=== PATIENT | male | born 1960 | race Caucasian/White ===

== ENCOUNTER → 2017-11-21 10:22 | Outpatient (CLI) | payer BC, SELFPAY ==
--- NOTE | 2017-11-21 10:29 | RAD_ITS ---
STUDY: X-RAY - ABDOMEN/PELVIS REASON FOR EXAM: Male, 57 years old. Abdominal pain. Evaluate for inflammatory bowel syndrome. TECHNIQUE: AP supine and upright views of the abdomen and pelvis. COMPARISON: None. FINDINGS: Normal visualized lung bases. There is an unremarkable bowel gas pattern with air seen to the level of the rectosigmoid. There is no demonstrated free abdominal air. The visualized liver, spleen and kidneys are grossly normal in size and morphology. There are phleboliths in the pelvis. Normal visualized osseous structures. RAD/Abd Inc Decub and/or Erect IMPRESSION: No acute pathology of the abdomen or pelvis. Electronically Signed: Diego Chi MD at 10:53 EDT , Service support ,
== END ==
PROVIDERS: Family Provider Internal Medicine; PCP Internal Medicine; Visit Provider Nurse Practitioner Gerontology
DX: R14.0 Abdominal distension (gaseous) (principal)
CPT/HCPCS: 74019

== ENCOUNTER → 2018-02-14 07:08 | Outpatient (CLI) | payer BC, SELFPAY ==
[2018-02-14 10:46] LABS: AST(SGOT) 69 U/L (15-37); Alanine Aminotransfer ALT/SGPT 72 U/L (16-61); Albumin, Serum 3.7 g/dL (3.2-5.0); Alkaline Phosphatase 61 U/L (45-117); Anion Gap 9 (5-15); BUN 13 mg/dL (7-18); BUN/Creat Ratio 13.5 RATIO (10-20); Calcium,Total 8.6 mg/dL (8.5-10.1); Chloride 109 mmol/L (98-107); Cholesterol 163 mg/dL (200); Creatinine, Serum 0.96 mg/dL (0.70-1.30); EST Glomerular Filtration Rate 86 mL/min (>60); Est Glom Filt Rate - Afr Amer 103 mL/min (>60); Globulin 3.7 g/dL (2.2-4.2); Glucose 141 mg/dL (74-106); High Density Lipoprotein 15 mg/dL; Potassium 3.9 mmol/L (3.5-5.1); Protein, Total 7.4 g/dL (6.4-8.2); Sodium Level 142 mmol/L (136-145); Triglycerides 323 mg/dL; Very Low Density Lipoprotein 65 mg/dL (5-40)
== END ==
PROVIDERS: Family Provider Internal Medicine; PCP Internal Medicine; Visit Provider Nurse Practitioner
DX: E78.5 Hyperlipidemia, unspecified (principal)
CPT/HCPCS: 36415; 80053; 80061

== ENCOUNTER → 2019-06-07 15:29 | Outpatient (CLI) | payer OTHER, SELFPAY ==
[2019-06-07 15:53] LABS: Absolute Lymphocyte Count 0.85 X10^3/uL (0.83-4.51); Absolute Neutrophil Count 9.2 X10^3/uL (2.0-7.7); Basophil# 0.04 X10^3/uL; Basophil% 0.4 % (0-1); Eosinophil# 0.21 X10^3/uL; Hematocrit 50.3 % (40-54); Hemoglobin 16.6 g/dL (13.0-16.5); Lymphocyte # 0.85 X10^3/ul (4.0); Mean Corpuscular Hgb 28.2 pg (27.0-32.0); Mean Corpuscular Volume 85.4 fL (80-94); Mean Platelet Vol. 9.9 fl (6.2-12.0); Monocyte# 0.29 X10^3/uL; Monocyte% 2.7 % (0-10); NRBC Flagged by Analyzer 0 % (0-5); Neutrophil % 86.5 % (47-70); Platelet Count 264 K/mm3 (150-450); RBC Distribution Width CV 13.1 % (11.6-14.6); RBC Distribution Width SD 40.6 fl (35.1-43.9); Red Blood Count 5.89 M/mm3 (4.6-6.2); White Blood Count 10.6 K/mm3 (4.4-11.0)
[2019-06-07 17:37] LABS: ALB/GLOB Ratio 1.1 RATIO (0.9-2.4); AST(SGOT) 112 U/L (15-37); Alanine Aminotransfer ALT/SGPT 96 U/L (16-61); Albumin, Serum 4.2 g/dL (3.2-5.0); Alkaline Phosphatase 86 U/L (45-117); Anion Gap 8 (5-15); BUN 14 mg/dL (7-18); BUN/Creat Ratio 13.7 RATIO (10-20); Calcium,Total 9.4 mg/dL (8.5-10.1); Chloride 106 mmol/L (98-107); Creatinine, Serum 1.02 mg/dL (0.70-1.30); EST Glomerular Filtration Rate 80 mL/min (>60); Est Glom Filt Rate - Afr Amer 96 mL/min (>60); Globulin 3.8 g/dL (2.2-4.2); Glucose 131 mg/dL (74-106); Sodium Level 140 mmol/L (136-145)
== END ==
PROVIDERS: Family Provider Internal Medicine; PCP Internal Medicine; Referring Provider Nurse Practitioner; Visit Provider Nurse Practitioner
DX: R11.10 Vomiting, unspecified (principal)
CPT/HCPCS: 80053; 85025

== ENCOUNTER → 2019-06-08 10:47 | Outpatient (CLI) | payer OTHER, SELFPAY ==
--- NOTE | 2019-06-08 10:53 | US_ITS ---
STUDY: ABDOMINAL ULTRASOUND - RIGHT UPPER QUADRANT REASON FOR VISIT: Male, 58 years old. Abdominal pain TECHNIQUE: Ultrasound evaluation of the right upper quadrant was performed with real-time and static mahmood-scale imaging. TECHNICAL QUALITY: Adequate. COMPARISON: None. FINDINGS: Liver: The liver measures 20 cm. There is normal echogenicity of the liver. The bile ducts are within normal limits. There is hepatic color flow. The direction of portal flow is hepatopetal. There is no demonstrated mass lesion. Gallbladder: Normal distended gallbladder. The gallbladder wall measures 2 mm. There is a negative sonographic Agarwal''s sign. There is no pericholecystic fluid. The gallbladder contains a gallstone. Gallbladder abdomen pneumatosis is present. Common Bile Duct (C.B.D.): The common bile duct measures 3 mm. Pancreas: Normal size of the head, body and tail of the pancreas. There is normal echogenicity of the pancreas. There is no demonstrated pancreatic mass or cyst. Right Kidney: Normal size of the right kidney. The right kidney measures 13 cm. Normal renal cortex. There is no demonstrated renal mass or cyst. There is no right hydronephrosis. US/Abdomen Limited IMPRESSION: Fatty liver. Hepatomegaly. No hepatic lesions identified. Cholelithiasis. Gallbladder adenomyomatosis. Electronically Signed: Dion Nettles, at 12:30 EST Tel , Service support ,
== END ==
PROVIDERS: Family Provider Nurse Practitioner; PCP Nurse Practitioner; Referring Provider Nurse Practitioner; Visit Provider Nurse Practitioner
DX: R10.11 Right upper quadrant pain (principal)
CPT/HCPCS: 76705

== ENCOUNTER → 2019-12-06 | Outpatient (CLI) | payer OTHER, SELFPAY ==
[2019-06-14 10:23] VITALS: BMI 28.8
== END | disposition home or self-care (01) ==
LOC: LABSPEC 10:09
PROVIDERS: PCP Nurse Practitioner; Referring Provider Otolaryngology; Visit Provider Otolaryngology
DX: Z11.59 Encounter for screening for other viral diseases (principal)
CPT/HCPCS: 87635; G2023; U0003

== ENCOUNTER → 2019-12-16 12:11 | Outpatient (CLI) | payer OTHER, SELFPAY ==
[2019-06-14 10:23] VITALS: BMI 28.8
== END ==
PROVIDERS: PCP Nurse Practitioner; Visit Provider Otolaryngology
DX: Z11.59 Encounter for screening for other viral diseases (principal)
CPT/HCPCS: 87635; G2023; U0003

== ENCOUNTER → 2019-12-16 14:10 | Outpatient (CLI) | payer OTHER, SELFPAY ==
[2019-06-14 10:23] VITALS: BMI 28.8
--- NOTE | 2019-12-16 14:27 | EKG12_ITS ---
Test Reason : PRE OP Blood Pressure : / mmHG Vent. Rate : 069 BPM Atrial Rate : 069 BPM P-R Int : 146 ms QRS Dur : 092 ms QT Int : 410 ms P-R-T Axes : -12 047 028 degrees QTc Int : 439 ms Normal sinus rhythm Normal ECG Confirmed by ALYSON CEE, ELSI ([id number]), writer editor BHARATH ARTEAGA ([id number]) on 12/17/2019 9:15:41 AM Referred By: Jose Jolly Confirmed By:ELSI SHIELDS MD
[2019-12-16 16:20] LABS: Anion Gap 5 (5-15); BUN 9 mg/dL (7-18); BUN/Creat Ratio 11.3 RATIO (10-20); Calcium,Total 8.9 mg/dL (8.5-10.1); Chloride 105 mmol/L (98-107); EST Glomerular Filtration Rate 106 mL/min (>60); Est Glom Filt Rate - Afr Amer 128 mL/min (>60); Glucose 137 mg/dL (74-106); Potassium 3.6 mmol/L (3.5-5.1); Sodium Level 138 mmol/L (136-145)
== END ==
PROVIDERS: PCP Nurse Practitioner; Referring Provider Otolaryngology; Visit Provider Otolaryngology
DX: Z01.818 Encounter for other preprocedural examination (principal); M95.0 Acquired deformity of nose
CPT/HCPCS: 36415; 80048; 93005

== ENCOUNTER 2020-03-30 06:42 | Emergency (ER) | payer OTHER, SELFPAY ==
[2020-02-28 10:57] VITALS: BMI 28.1
[2020-03-30 06:43] VITALS: BP 159/85; PULSE 85; RESP 16; TEMP 36.7; O2SAT 97; BMI 28.5
--- NOTE | 2020-03-30 07:09 | ED.DCSUM_ITS ---
- ER Visit Summary Date of Service: 03/30/20 Chief Complaint: Red eye History of Present Illness: The patient is a 59 M who presents with a red right eye. He woke up with it this morning. He denies any trauma. He is having no pain. No foreign body sensation. He has no visual changes. He denies any his tory of any injury or direct trauma to the eye. He wears glasses but does not wear contact lenses. He denies any straining, coughing or sneezing. He takes no blood thinning medications. He has seen Dr. Thornton in the past. Physical Examination: Vital signs are reviewed. Right eye exam reveals a subconjunctival hemorrhage on the right nasal portion of the sclera. His ext raocular motions are intact without pain. There is no palsy or nystagmus. His pupils are equally round and reactive to light. Test Results: None performed Emergency Department Course and Treatment: The patient appears to have a subconjunctival hemorrhage. He has no other symptoms. I feel this can be monitored as an outpatient. He has seen Dr. Thornton in the past. 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 I recommended that he call Dr. Thornton today for follow-up later this week for reevaluation Treatment Plan: [] Disposition: Discharge Impression: Subconjunctival hemorrhage This note was generated with [employer] dictation software. It may contain incorrect words, spelling, and punctuation that were not noted in review of the chart prior to signing ED Disposition - Plan for ED Patient: Disposition: Home or Assisted Living Instructions: ED EYE INJURY Subconj Hemorrhage Referrals: Dion Thornton MD [STAFF PHYSICIAN] -
== END 2020-03-30 07:16 | disposition home or self-care (01) ==
LOC: ED 07:15
PROVIDERS: Emergency Provider Emergency Medicine; PCP Nurse Practitioner
DX: H11.31 Conjunctival hemorrhage, right eye (principal); E11.9 Type 2 diabetes mellitus without complications; Z79.84 Long term (current) use of oral hypoglycemic drugs
CPT/HCPCS: 99282

== ENCOUNTER → 2020-11-12 08:31 | Outpatient (CLI) | payer OTHER, SELFPAY ==
[2020-11-12 08:14] VITALS: BMI 29.0
[2020-11-12 12:17] LABS: Absolute Lymphocyte Count 2.52 X10^3/uL (0.83-4.51); Absolute Neutrophil Count 2.8 X10^3/uL (2.0-7.7); Basophil# 0.06 X10^3/uL; Eosinophil# 0.16 X10^3/uL; Eosinophils% 2.7 % (0-5); Hematocrit 49.2 % (40-54); Hemoglobin 16.2 g/dL (13.0-16.5); Lymphocyte # 2.52 X10^3/ul (0.83-4.51); Lymphocyte % 41.9 % (19-41); Mean Corp Hgb Conc 32.9 g/dL (32-36); Mean Corpuscular Volume 88.2 fL (80-94); Mean Platelet Vol. 10.3 fl (6.2-12.0); Monocyte# 0.51 X10^3/uL; Monocyte% 8.5 % (0-10); NRBC Flagged by Analyzer 0 % (0-5); Neutrophil # 2.75 X10^3/uL (2.7-7.7); Neutrophil % 45.6 % (47-70); Platelet Count 243 K/mm3 (150-450); RBC Distribution Width CV 13.8 % (11.6-14.6); RBC Distribution Width SD 44.7 fl (35.1-43.9); Red Blood Count 5.58 M/mm3 (4.6-6.2)
[2020-11-12 12:32] LABS: Vitamin D,25 Hydroxy 21.8 ng/mL
[2020-11-12 12:36] LABS: Microalbumin,Random Urine 5.5 mg/L (NO RANGE EST.); Microalbumin:Creatinine Ratio 12.2 mg/g CRE (<30 mg/g CRE)
[2020-11-12 12:52] LABS: ALB/GLOB Ratio 1.1 RATIO (0.9-2.4); AST(SGOT) 60 U/L (15-37); Alanine Aminotransfer ALT/SGPT 74 U/L (16-61); Albumin, Serum 3.8 g/dL (3.2-5.0); Alkaline Phosphatase 72 U/L (45-117); Anion Gap 9 (5-15); BUN 15 mg/dL (7-18); BUN/Creat Ratio 17.6 RATIO (10-20); Calcium,Total 8.7 mg/dL (8.5-10.1); Chloride 107 mmol/L (98-107); Cholesterol 137 mg/dL (200); Creatinine, Serum 0.85 mg/dL (0.70-1.30); EST Glomerular Filtration Rate 98 mL/min (>60); Est Glom Filt Rate - Afr Amer 118 mL/min (>60); Globulin 3.6 g/dL (2.2-4.2); Glucose 190 mg/dL (74-106); High Density Lipoprotein 24 mg/dL; Protein, Total 7.4 g/dL (6.4-8.2); Sodium Level 140 mmol/L (136-145); Thyroid Stim Hormone (TSH) 1.13 uIU/mL (0.358-3.74); Triglycerides 600 mg/dL
== END ==
PROVIDERS: PCP Nurse Practitioner; Visit Provider Internal Medicine Endocrinology, Diabetes & Metabolism
DX: E11.65 Type 2 diabetes mellitus with hyperglycemia (principal); E78.2 Mixed hyperlipidemia; E55.9 Vitamin D deficiency, unspecified
CPT/HCPCS: 36415; 80053; 80061; 82043; 82306; 82570; 84153; 84443; 85025; G0103

== ENCOUNTER → 2021-04-05 11:55 | Outpatient (CLI) | payer OTHER, SELFPAY | PROVIDERS: PCP Nurse Practitioner; Referring Provider Internal Medicine Gastroenterology; Visit Provider Internal Medicine Gastroenterology | DX: Z11.59 Encounter for screening for other viral diseases (principal) | CPT/HCPCS: 87635; C9803; U0005; U0003 ==

== ENCOUNTER 2021-04-19 10:45 | Outpatient (CLI) | payer OTHER, SELFPAY ==
[2021-04-19 10:50] VITALS: BP 157/78; PULSE 93; RESP 16; TEMP 37.4; O2SAT 98; BMI 27.9
[2021-04-19] MEDS: 0.9% Saline Lock 10 ML Syringe IV (11:01)
[2021-04-19 12:04] VITALS: BP 137/66; PULSE 94; RESP 16; TEMP 36.8; O2SAT 98
[2021-04-19 12:47] VITALS: BP 136/84; PULSE 91; RESP 16; TEMP 37.6; O2SAT 97
== END 2021-04-19 13:01 | disposition home or self-care (01) ==
LOC: MS3OUT 10:45 → MS3 10:46
PROVIDERS: PCP Nurse Practitioner; Referring Provider Nurse Practitioner Adult Health; Visit Provider Nurse Practitioner Adult Health
DX: Z23 Encounter for immunization (principal); U07.1 COVID-19; E11.9 Type 2 diabetes mellitus without complications
CPT/HCPCS: J7050; M0245; Q0245; A4216

== ENCOUNTER 2023-06-08 10:47 | Emergency (ER) | payer OTHER, SELFPAY ==
[2023-06-08 10:48] VITALS: BP 156/84; PULSE 82; RESP 18; TEMP 36.3; O2SAT 95; BMI 28.3
== END 2023-06-08 14:31 | disposition left against medical advice (07) ==
LOC: ED 14:31
PROVIDERS: PCP Nurse Practitioner Family
DX: H57.89 Other specified disorders of eye and adnexa (principal); Z53.21 Procedure and treatment not carried out due to patient leaving prior to being seen by health care provider

== ENCOUNTER → 2023-08-23 | Outpatient (CLI) | payer OTHER, SELFPAY ==
[2023-08-23 11:07] LABS: Absolute Neutrophil Count 3.2 X10^3/uL (2.0-7.7); Basophil# 0.07 X10^3/uL; Basophil% 1.1 % (0-1); Eosinophil# 0.15 X10^3/uL; Eosinophils% 2.3 % (0-5); Hematocrit 45.7 % (40-54); Hemoglobin 15.4 g/dL (13.0-16.5); Lymphocyte % 40.2 % (19-41); Mean Corp Hgb Conc 33.7 g/dL (32-36); Mean Corpuscular Hgb 28.7 pg (27.0-32.0); Mean Corpuscular Volume 85.3 fL (80-94); Monocyte# 0.46 X10^3/uL; Monocyte% 7.1 % (0-10); NRBC Flagged by Analyzer 0 % (0-5); Neutrophil # 3.17 X10^3/uL (2.7-7.7); Platelet Count 258 K/mm3 (150-450); RBC Distribution Width CV 13.5 % (11.6-14.6); RBC Distribution Width SD 42.1 fl (35.1-43.9); Red Blood Count 5.36 M/mm3 (4.6-6.2); White Blood Count 6.5 K/mm3 (4.4-11.0)
[2023-08-23 12:06] LABS: Anion Gap 5 (5-15); BUN 13 mg/dL (7-18); BUN/Creat Ratio 14.9 RATIO (10-20); Calcium,Total 8.9 mg/dL (8.5-10.1); Chloride 110 mmol/L (98-107); Cholesterol 192 mg/dL (200); Creatinine, Serum 0.88 mg/dL (0.70-1.30); EST Glomerular Filtration Rate 94 mL/min (>60); Est Glom Filt Rate - Afr Amer 113 mL/min (>60); Glucose 172 mg/dL (74-106); High Density Lipoprotein 19 mg/dL; Potassium 3.6 mmol/L (3.5-5.1); Sodium Level 140 mmol/L (136-145); Triglycerides 524 mg/dL
== END | disposition home or self-care (01) ==
PROVIDERS: PCP Nurse Practitioner Family; Referring Provider Internal Medicine Cardiovascular Disease; Visit Provider Internal Medicine Cardiovascular Disease
DX: E78.2 Mixed hyperlipidemia (principal); R07.89 Other chest pain
CPT/HCPCS: 36415; 80048; 80061; 84443; 85025

== ENCOUNTER → 2023-09-21 | Outpatient (CLI) | payer OTHER, SELFPAY ==
--- NOTE | 2023-09-21 06:46 | ECHOD_ITS ---
Reason For Study: CHEST PAIN Procedure This was a 2D Doppler, Color Flow transthoracic echocardiogram. Exam performed in department. Left Ventricle Normal LV size. Left ventricular systolic function is normal. The estimated ejection fraction is 60 %. Stage 1 diastolic dysfunction. No regional wall motion abnormalities noted. Right Ventricle Normal RV size. Normal systolic function. Atria Normal left atrium. Normal right atrium. Mitral Valve Normal mitral valve. Tricuspid Valve Normal tricuspid valve. Aortic Valve Trisinus/trileaflet aortic valve. Pulmonic Valve Normal pulmonic valve. Great Vessels Normal aortic root. The pulmonary artery is normal size. Normal inferior vena cava. Pericardium/Pleural No pericardial effusion. MMode/2D Measurements & Calculations LVIDd: 5.0 cm IVSd: 1.0 cm Ao root diam: 3.8 cm LVIDs: 3.3 cm LVPWd: 1.3 cm RVDd: 3.6 cm FS: 33.7 % LAV(MOD-bp): 53.4 ml LVAd ap4: 27.4 cm2 SV(MOD-sp4): 44.4 ml LAV(MOD-bp) Indexed: 25.9 ml/m2 LVLd ap4: 7.6 cm LAV(MOD-sp2): 51.9 ml EDV(MOD-sp4): 82.3 ml LAV(MOD-sp4): 50.1 ml EDV(sp4-el): 83.6 ml LVAs ap4: 16.5 cm2 LVLs ap4: 6.4 cm ESV(MOD-sp4): 37.9 ml ESV(sp4-el): 35.8 ml EF(MOD-sp4): 54.0 % EF(sp4-el): 57.1 % SV(sp4-el): 47.8 ml LA A4 area: 16.6 cm2 LA dimension(2D): 3.9 cm RA A4 area: 13.0 cm2 TAPSE: 1.9 cm Time Measurements MV dec time: 0.18 sec Doppler Measurements & Calculations MV E max celso: 65.6 cm/sec Lat Peak E' Celso: 7.1 cm/sec Med Peak E' Celso: 7.2 cm/sec MV A max celso: 74.0 cm/sec E/E' lat: 9.2 E/E' med: 9.1 MV E/A: 0.89 MV V2 max: 85.4 cm/sec Ao V2 max: 114.6 cm/sec MV max P.9 mmHg MV dec slope: 374.1 cm/sec2 Ao max P.3 mmHg MV V2 mean: 57.6 cm/sec Ao V2 mean: 80.3 cm/sec MV mean P.5 mmHg Ao mean P.9 mmHg MV V2 VTI: 21.7 cm Ao V2 VTI: 23.8 cm AV (velocity ratio): 0.79 LV V1 max: 92.3 cm/sec PA V2 max: 108.4 cm/sec LV V1 max P.4 mmHg PA V2 mean: 79.8 cm/sec LV V1 mean P.8 mmHg LV V1 mean: 64.6 cm/sec LV V1 VTI: 18.8 cm ECHO/Echo Complete Interpretation Summary Normal LV size. Left ventricular systolic function is normal. The estimated ejection fraction is 60 %. Stage 1 diastolic dysfunction. Ordering Physician: Narayan Beard Referring Physician: Emy Ledesma Performed By: Jasmyn Pimentel, RDCS, RVT
--- NOTE | 2023-09-21 10:43 | CT_ITS ---
STUDY: CT CHEST WITHOUT CONTRAST REASON FOR EXAM: Male, 63 years old. CHEST PAIN RADIATION DOSAGE (If Supplied By Facility): CTDIvol = ( 12.19 ) mGy, DLP = ( 243.79 ) mGycm TECHNIQUE: Transaxial imaging was performed without the administration of intravenous contrast material. Cardiac over read examination. Individualized dose optimization techniques were used for this CT. COMPARISON: No relevant priors. FINDINGS: CHEST The lungs are normal. There is no demonstrated pleural abnormality. There are calcifications of the coronary arteries. Small benign-appearing mediastinal lymph nodes. Normal hilar regions. Normal unenhanced pulmonary arteries. Atherosclerotic plaque formation of the aortic arch. There are degenerative changes of the thoracic spine. There is no demonstrated abnormality of the visualized upper abdomen. CT/Limited Chest CT Cardiac Only IMPRESSION: Coronary calcification. The lungs are clear. Electronically Signed: Arjun Membreno MD at 9:04 EDT ,
--- NOTE | 2023-09-24 16:55 | CA.SCORE ---
Calcium Scoring Date of Study:: 09/21/23 Indications Indications: Family history Coronary Calcium Scoring: High-resolution Computed Tomographic imaging of the chest was performed on [09/21/23 ], with particular attention paid to the coronary arteries. Images from the examination were analyzed for the presence and extent of coronary artery calcification , using coronary calcium quantification software. The patient tolerated the procedure well and there were no complications. The results of the coronary calcification analysis are provided below. Findings Coronary Artery Left Main (LM): 0 Left Anterior Descending (LAD): 142 Left Circumflex (LCX): 25 Right Coronary Artery (RCA): 27 Total Agatston Score: 194 Percentile Rankin-75% Calcium Scoring Interpretation: Different methods to categorize the overall amount of coronary plaque. Overall amount CAC SIS Visual of coronary plaque P1 Mild -100 <2 1-2 vessels with mild amount of plaque P2 Moderate 101-300 3-4 1-2 vessels with moderate amount, 3 vessels with mild amount of plaque P3 Severe 301-999 5-7 3 vessels with moderate amount, 1 vessel with severe amount of plaque P4 Extensive >1000 >8 2-3 vessels with severe amount of plaque Calcium Score: Moderate: 1-2 vessels w/moderate amt, 3 vessels w/mild amt of plaque Conclusion: Moderate plaque disease present in at least one vessel
--- NOTE | 2023-09-24 17:26 | STRESSREP_ITS ---
Stress Test Report Exercise myocardial perfusion stress test. 63-year-old man with a history of chest pain Stress protocol: Resting EKG demonstrates normal sinus rhythm with a rate of 78 bpm resting blood pressure is 138/82 mmHg. The patient exercised according to the regular Dave protocol for a total duration of 11 minutes and 16 seconds attaining a maximum heart rate of 148 bpm which was 94% of maximum predicted heart rate; the maximum workload was 13.4 metabolic equivalents. At rest there were no ST or T wave changes noted to suggest ischemia and at peak exercise upsloping ST changes only were noted which did not meet the criteria for ischemia. No clinical angina was noted the test was terminated due to the target heart rate being achieved/fati vee. The peak blood pressure was 180/74 mmHg. Rate-pressure product was 26,200. Myocardial perfusion protocol. 13.3 mCi of technetium 99m sestamibi was injected at rest. The patient exercised according to regular Dave protocol for total duration of 11 minutes and 16 seconds and at peak exercise 40.1 mCi of technetium 99m sestamibi was injected stress images were obtained stress and rest images were reconstructed in comparing the short axis vertical long and horizontal long axis. Gated images were also obtained. Perfusion SPECT analysis: Review of the stress images demonstrate normal uptake of tracer noted in all areas of the myocardium. The resting images similarly demonstrate normal uptake of tracer noted in all areas of the myocardium. No areas of reversibility are noted to suggest ischemia no previous infarct was noted. Gated SPECT analysis: The gated ejection fraction is 68%. Conclusion: Normal exercise myocardial perfusion stress test at a high workload Preserved ejection fraction. Excellent functional aerobic capacity.
== END | disposition home or self-care (01) ==
PROVIDERS: PCP Nurse Practitioner Family; Referring Provider Internal Medicine Cardiovascular Disease; Visit Provider Internal Medicine Cardiovascular Disease
DX: R07.89 Other chest pain (principal); E78.2 Mixed hyperlipidemia
CPT/HCPCS: 75571; 76380; 78452; 93017; 93306; A9500; A4216

== ENCOUNTER 2024-11-18 06:56 | Day surgery (SDC) | payer OTHER, SELFPAY ==
--- NOTE | 2024-11-04 09:30 | RAD_ITS ---
PROCEDURE: CHEST PA AND LATERAL 11/04/2024 REASON FOR EXAM: CARDIAC CATH,AP TECHNIQUE: Frontal and lateral views of the chest. COMPARISON: None. FINDINGS: The lungs are clear. The heart borders mediastinum and pulmonary vascular pattern are normal. The upper abdominal bowel gas pattern is normal. There are no significant bony abnormalities. RAD/Chest PA and Lateral IMPRESSION: No evidence of acute cardiopulmonary pathology. Reading Location: [place] [id number]
[2024-11-15 08:10] VITALS: BMI 28.4
--- NOTE | 2024-11-15 12:54 | PCM.HP.BLA ---
History and Physical Date of Admission: 11/18/24 This is a 64-year-old man who presents today for a cardiac catheterization following continued chest pain. He has a history of diabetes mellitus severe hypertriglyceridemia on medication. He complains of chest discomfort or a pressure-like sensation when he exerts himself. He says this has been going on for years. He underwent a stress test on 09/24/2023 which was negative for ischemia, his echocardiogram at that time demonstrated ejection fraction of 60%, and stage I diastolic dysfunction. He did undergo a cardiac calcium score which demonstrated moderate plaque disease present in at least 1 vessel. From a cardiac standpoint, the patient is doing well. He does acknowledge chest pressure with exertion-this is located midsternal, right below throat. This is relieved with rest. He states that he was started on isosorbide 30mg daily, and his pain has decreased significantly. He denies any palpitations, chest pain, or heaviness. He does have SOB with walking up a steep hill. He denies Orthopnea, and PND. He does not have bleeding issues; no blood in urine, stool, or nosebleeds. He denies any decrease in energy level, myalgias, or claudication. He does not have edema, or sudden weight gain. He denies lightheadedness, dizziness, syncopal or near syncopal episodes, and headaches. Intake Vital Signs See EMR Allergies See EMR Medications See EMR [facility] Medical History Hyperlipidemia Cholelithiasis GERD (gastroesophageal reflux disease) Nausea & vomiting Diarrhea Abdominal pain Diabetes Surgical History History of carpal tunnel release History of vasectomy Hx of right cataract extraction History of trabeculectomy Family History Sister DiabetesFather Heart disease Hypertension Social History Smoking Status: Current every day smoker alcohol intake: current alcohol intake frequency: a few times a month substance use type: does not use ROS Const Const: Negative for fatigue, weakness, headache(s) or frequent falls Eyes Eyes: Negative for blurry vision ENT ENT: Negative for headache(s), dizziness or Nosebleed/epistaxis Cardio Chest Pain: Yes Frequency: daily Character: other (Pressure) Onset: at rest and other (isosorbide) Location: mid sternal Palpitations: No Edema: None Muscle aches with walking: None Resp Respiratory: Negative for SOB with activity, SOB at rest or SOB orthopnea\SOB lying down GI GI: Positive for heartburn; Negative nausea, vomiting, bright, red blood in stools or black,tarry stools : Negative for hematuria Neuro Neuro: Negative for dizziness, lightheadedness, near syncope, syncope, frequent falls, headache(s), weakness or blurry vision Endo Endo: Negative for fatigue Cardiology Exam Const Appearance: cooperative, healthy appearing, no acute distress, well developed and well groomed Nutritional Appearance: average body habitus, well nourished and overweight Orientation: alert, awake and oriented x3 Head Head: normal to inspection, normocephalic and atraumatic Ears: hearing grossly normal bilaterally and external ears normal Nose: external nose normal and nares normal Face and Sinus: face symmetric Eyes General: appearance normal, both eyes and all related structures Eyelids: eyelids normal Conjunctivae: conjunctivae normal Pupils: PERRL, normal by confrontation and accommodation normal EOM: EOM intact bilaterally Neck Neck: normal visual inspection, trachea midline and no JVD JVD: +5 Carotids: normal carotid upstroke and bounding pulses Chest Chest inspection: normal inspection of the chest, symmetric chest movement and normal respiratory effort Auscultation: Bilateral: Clear to Auscultation Cardio Palpation: normal PMI Rate: regular rate Rhythm: regular rhythm Heart sounds: S1 normal, S2 normal and normal, physiologic split S2; Negative rub, gallop or murmur GI GI: normal to inspection and soft Neuro General: patient alert, patient awake, patient oriented x3, gait normal, moves all extremities and no focal sensory deficit Skin Skin: no rashes or lesions noted Extremities Pulses: Normal: Right Posterior Tibial Pulse, Left Posterior Tibial Pulse, Right Radial Pulse and Left Radial Pulse Lower Extremity Edema: None: Bilateral Musculoskel Musculoskeletal: No joint tenderness Psych Psychological: normal affect Supplemental Info Supplemental Information Echocardiogram from 09/21/2023: Interpretation Summary Normal LV size. Left ventricular systolic function is normal. The estimated ejection fraction is 60 %. Stage 1 diastolic dysfunction. Stress test from 09/21/2023: Conclusion: Normal exercise myocardial perfusion stress test at a high workload Preserved ejection fraction. Excellent functional aerobic capacity. Coronary angiography CT scan from 09/21/2023: Findings Coronary Artery Left Main (LM): 0 Left Anterior Descending (LAD): 142 Left Circumflex (LCX): 25 Right Coronary Artery (RCA): 27 Total Agatston Score: 194 Percentile Rankin-75% Conclusion: Moderate plaque disease present in at least one vessel Assessment and Plan Assessment and Plan (1) Chest pressure: Status: Acute Plan: Patient continues to acknowledge midsternal chest pressure. His stress test from 09/24/2023 was negative for ischemia, his echocardiogram from 09/21/2023 demonstrated an ejection fraction of 60%, and stage I diastolic dysfunction. His coronary calcium score from 09/21/2023 demonstrated moderate plaque disease present in at least 1 vessel. His EKG from 09/06/2024 at his PCPs office demonstrated sinus rhythm, incomplete left bundle branch block, which is new, and heart rate 75 bpm. With his continued chest pressure would like to proceed with a cardiac catheterization. Patient is agreeable. Cardiac catheterization instructions were reviewed with patient, and he verbalizes understanding. At this time, he will continue with his current medical therapy, along with aggressive risk factor and lifestyle modifications. He will continue to monitor for any concerning symptoms.
[2024-11-15 15:48] LABS: Absolute Lymphocyte Count 2.86 X10^3/uL (0.83-4.51); Absolute Neutrophil Count 4.8 X10^3/uL (2.0-7.7); Basophil# 0.07 X10^3/uL; Basophil% 0.8 % (0-1); Eosinophil# 0.16 X10^3/uL; Eosinophils% 1.9 % (0-5); Hematocrit 43.5 % (40-54); Hemoglobin 15.4 g/dL (13.0-16.5); Lymphocyte # 2.86 X10^3/ul (0.83-4.51); Mean Corp Hgb Conc 35.4 g/dL (32-36); Mean Corpuscular Hgb 29.3 pg (27.0-32.0); Mean Corpuscular Volume 82.9 fL (80-94); Mean Platelet Vol. 9.2 fl (6.2-12.0); Monocyte# 0.52 X10^3/uL; Monocyte% 6.2 % (0-10); NRBC Flagged by Analyzer 0 % (0-5); Neutrophil # 4.77 X10^3/uL (2.7-7.7); Neutrophil % 56.7 % (47-70); Platelet Count 267 K/mm3 (150-450); RBC Distribution Width CV 13.1 % (11.6-14.6); RBC Distribution Width SD 39.3 fl (35.1-43.9); Red Blood Count 5.25 M/mm3 (4.6-6.2); White Blood Count 8.4 K/mm3 (4.4-11.0)
[2024-11-15 16:36] LABS: Anion Gap 12 (5-15); BUN 12 mg/dL (4-19); BUN/Creat Ratio 15.2 RATIO (10-20); Calcium,Total 9.4 mg/dL (7.6-11.0); Carbon Dioxide 22.2 mmol/L (21.0-32.0); Chloride 103 mmol/L (98-108); Creatinine, Serum 0.82 mg/dL (0.70-1.20); EST Glomerular Filtration Rate 98 (>60); Estimated Creatinine Clearance 102.63 ml/min (50-250); Glucose 230 mg/dL (70-99); Sodium Level 137 mmol/L (133-145)
--- NOTE | 2025-01-06 09:45 | CL.D_ITS ---
Patient Name: AIMEE WOLFE Study Date: 11/18/2024 Performing: Narayan Beard MD Ht: 70 inches 177.8 cm : 1960 Wt: 198 lbs 89.81 kg Age: 64 Gender: male BSA: 2.08 PROCEDURE(S) PERFORMED [id number])LHC/COR/LV CLINICAL PROFILE AND INDICATIONS Indications: Suspected CAD Heart Failure: None Stress/Imaging Stress/Image Study Performed: No CAD Presentations: Stable angina. CONCLUSIONS Nonobstructive LAD and right coronary artery disease. Preserved ejection fraction. RECOMMENDATIONS Risk factor modification DESCRIPTION OF PROCEDURE The patient arrived to the procedure lab. The risks and benefits of the procedure as well as a full description of our services here and current unavailability of surgical backup were fully explained to the patient and/or their significant other prior to the catheterization. The Timeout was completed, verifying the correct patient and procedure. The patient's procedural site was prepped and draped in the usual fashion. Local anesthetic was given subcutaneously to right radial region with Lidocaine 2%. Using a modified Seldinger technique, Left Coronary Artery selective angiography was performed in multiple views using a 5 Fr. 4.0 [place] catheter. Right Coronary Artery selective angiography was then performed in multiple views using a 5 Fr. 4.0 [place] catheter. Right Coronary Artery selective angiography was then performed in multiple views using a 5 Fr. JR 4 catheter. Left Ventriculography was performed in [place] projection using a 5 Fr. [place] catheter. LV to AO pullback pressures were then recorded.The arterial sheath was pulled and a TR Band was applied for hemostasis CORONARY ANGIOGRAPHY DOMINANCE: Co- Dominant LEFT HEART ASSESSMENT Left Ventricular Ejection Fraction: by LV Gram 60 % Normal LV wall motion Normal Left Ventricular systolic function LEFT MAIN: Angiographically normal LEFT ANTERIOR DESCENDING ARTERY: Medium size vessel with 40 to 50% mid segment stenosis of first diagonal with no significant disease in distal LAD with mild luminal irregularities. CIRCUMFLEX ARTERY: Mild luminal irregularities present. RIGHT CORONARY ARTERY: Codominant vessel with mid segment 40 to 50% stenosis present mild distal luminal irregularities present COMPLICATIONS No Complications PROCEDURE MEDICATIONS Fentanyl 50 mcg IV Versed 1 mg IV Versed 1 mg IV Oxygen: 2 L/min via nasal cannula Heparin given IA 11/18/2024 07:54:35 Verapamil 2.5mg, Ntg 100mcgs, 3000 units of Heparin given IA 11/18/2024 07:54:35 SUMMARY OF HEMODYNAMIC DATA Time AIR REST ECG 07:16:43 AO 119/78 (97) SA 07:58:25 LV 113/14, 21 08:13:32 LV 115/14, 19 08:13:39 LV 101/9, 19 08:14:41 LVp 101/8, 20 08:14:44 AOp 105/60 (80) 08:14:49 Signed By Narayan Beard MD On 11/18/2024 08:53:16 Narayan Beard MD
== END 2024-11-18 10:30 | disposition home or self-care (01) ==
PROVIDERS: Nurse Practitioner Gerontology; PCP Nurse Practitioner Family; Referring Provider Internal Medicine Cardiovascular Disease; Visit Provider Internal Medicine Cardiovascular Disease
DX: I25.118 Atherosclerotic heart disease of native coronary artery with other forms of angina pectoris (principal); E78.1 Pure hyperglyceridemia; F17.200 Nicotine dependence, unspecified, uncomplicated; Z79.899 Other long term (current) drug therapy; Z82.49 Family history of ischemic heart disease and other diseases of the circulatory system
CPT/HCPCS: 36415; 71046; 80048; 85025; 93458; 99152; 99153; Q9967; C1769; C1894